=== PATIENT | female | born 1960 | race Caucasian/White ===

== ENCOUNTER 2021-09-01 08:00 | Outpatient (CLI) | payer OTHER ==
[2021-09-04 13:05] LABS: HSV 1 DNA NOT DETECTED; HSV 2 DNA NOT DETECTED; SOURCE SWAB
== END 2021-09-01 23:59 ==
LOC: LAB.N 08:00
PROVIDERS: ATTEND Nurse Practitioner
DX: B00.2 Herpesviral gingivostomatitis and pharyngotonsillitis (principal)
CPT/HCPCS: 87070; 87529

== ENCOUNTER 2024-03-08 09:38 | Outpatient (CLI) | payer OTHER ==
--- NOTE | 2024-03-08 10:16 | Sleep Patient Instructions ---
Sleep Center Visit Summary - Patient Visit Information Reason for Visit: Initial consult for evaluation of sleep disordered breathing and other sleep issues. - Patient Instructions Instructions Attached: Sleep Study Home Monitor Additional Instructions: You will be completing a sleep study, either an in-lab polysomnography (PSG) or home sleep study (HST). You will follow-up in the sleep care office after the sleep study is completed to hear the results and talk about therapy, if needed. You will be called by our office staff to schedule this appointment, but you may contact us with any questions. - Clinic Information Contact: [facility] [address] [place] [address] [email or web address] T: [phone]
--- NOTE | 2024-03-08 10:19 | SLEEP CARE CONSULTATION ---
Information from patient questionnaire entered by Marcelo Moreno. I have reviewed and concur with the information entered by Marcelo Moreno. This document represents the service I personally performed and the decisions made by me, Felisa Lei ARNP. History of Present Illness Service Date and Time: 03/08/2024 0938 Reason for Visit: New patient Chief Complaint: reports: Insomnia, Snoring, Observed pauses in breathing, Fatigue, Frequent awakenings at night Date of Onset: , POSSIBLY back to 2014 Usual bedtime: 2300 Time it takes to fall asleep: DEPENDS ON THE NIGHT SOMETIMES FALL ASLEEP 0200 Snores at night: Yes Observed to quit breathing while asleep: Yes Number of times waking at night: 3-4 Reasons for waking at night: reports: Gasping for air, Pain, Bathroom, Other (NOISE) Toss, Turn, or Twitch while sleeping: Yes Recalls having dreams: No (rare, twice a year) Usually gets out of bed at: 0630; weekends 0700 Feels refreshed in the morning: Yes Morning headache: No Sleepy or fatigued during the day: Yes Ever fallen asleep while driving: No Takes day naps: No Prior sleep studies: Yes Additional HPI information: I had the pleasure of seeing DIANA ARGUETA today regarding the possibility of her having a sleep disorder. Her current complaints are insomnia, snoring, observed pauses in breathing, fatigue and frequent night awakenings. She says she sometimes wakes up feeling like she can't breathe, gasping for air. She sometimes has insomnia. She says she was talking to her PCP and discussed sleep, thinking it could be related. She says she lives alone but her grandson has told her that she snores. She says a couple of years ago she was sent a monitor that said she stopped breathing a "crazy" amount of time and offered a CPAP. A second opinion told her that her episodes were mainly on her back and she tried positional therapy for about a month with some mild improvement. She really does not want to try a CPAP but would like to start feeling better and would like to explore her options. - Parasomnia Symptoms Ever been unable to move upon waking from sleep: Yes (only as a child) Walks in sleep: No Talks in sleep: No (sleeps alone) Ever acted out dreams in sleep: No Ever felt weak in the knees when startled or emotional: No Bothered by creepy, crawly, restless sensations in legs: Yes (couple, three times a year) Problems with memory or concentration: Yes (memory mostly; don't have memory of childhood) Subjective Initial [place] Sleepiness Scale score: 5 (01/30/24) Past Medical History Past Medical History: reports: Diabetes (pre-diabetic, new), Anemia (iron-def anemia in 2020, resolved) Social History 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 Patient is Single and lives in . Have you smoked in the past 12 months: No Alcohol use: Yes Alcohol amount and frequency: 1-2 EVERY COUPLE WEEKS SOMETIMES LESS FREQUENT Caffeine use: Yes Caffeine amount and frequency: 2 CUPS EVERY MORNING; stopping during new medications Family History Family history of sleep disordered breathing: No Allergies and Home Medications Known drug allergies: Yes (SULFA) Drug allergies reviewed: Yes Home medication list reviewed: Yes (as listed) Allergy and home medication list: Allergies Sulfa (Sulfonamide Antibiotics) Allergy (Verified 03/08/24 09:39) Home Medications Cholecalciferol (Vitamin D3) [Vitamin D3] See Rx Instructions .ROUTE .COMPLEX 03/08/24 [History] Ferrous Sulfate See Rx Instructions .ROUTE .COMPLEX 03/08/24 [History] [place]-3/Dha/Epa/Fish Oil [Fish Oil 1,000 mg Softgel] See Rx Instructions .ROUTE .COMPLEX 03/08/24 [History] Phentermine HCl See Rx Instructions .ROUTE .COMPLEX 03/08/24 [History] glucosamine HCL [Glucosamine HCl] See Rx Instructions .ROUTE .COMPLEX 03/08/24 [History] Review of Systems Weight gain over past 5 years: 40 Cardiovascular: denies: high blood pressure Respiratory: denies: shortness of breath Gastrointestinal: denies: heartburn Neurological: denies: headaches, head trauma Psychiatric: denies: anxiety, depression Ear/Nose/Throat: reports: nasal congestion, dry mouth/throat, tonsillectomy, wisdom teeth removed. denies: injury to nose Endocrine: reports: sluggishness. denies: thyroid disease Musculoskeletal: reports: back pain Immunologic: reports: sneezing, allergies to food or environment Physical Exam Vital signs obtained and entered by: MARCELO Swenson MA Blood Pressure: 126/91 (RIGHT ARM) Cuff size: regular Heart Rate: 74 O2 Saturation: 98 Height: 5 ft 3 in Weight: 177 lb Body Mass Index: 31.3 BMI Classification: Obese Neck circumference: 14 Nostrils: patent to airflow Mouth and throat: narrow oropharynx Soft palate: long Hard palate: normal Uvula: normal Uvula visualization: 25% Mallampati Class III Tongue: enlarged in size with teeth robins on lateral edges Tonsils: absent bilaterally Neck: normal w/o lymphadenopathy or thyromegaly Heart: regular rate and rhythm Lungs: clear bilaterally Impression and Plan 1. Suspected Obstructive Sleep Apnea-Hypopnea Syndrome, as suggested by a history of irregular snoring, observed cessation of breath while asleep, gasping or choking in sleep, frequent awakening during the night and cognitive impairment. Narrow oropharynx and obesity are common predisposing factors for obstructive sleep apnea-hypopnea syndrome. I recommend proceeding to polysomnography to confirm the diagnosis and to assess severity. If the patient has significant sleep disordered breathing, a manual CPAP titration study will also be performed to find the optimal treatment pressure. I informed the patient of what the sleep studies involve and after some discussion, obtained agreement to proceed. The pathophysiology of obstructive sleep apnea-hypopnea syndrome was discussed with the patient and health risks of cardiovascular and cerebrovascular disease if not treated. Risks of drowsy driving discussed in detail and patient advised to avoid long distance driving and to trap puller at the first sign of drowsiness. Patient agreed to plan. * Schedule polysomnography. * Avoid long distance driving or driving when feeling sleepy. * Avoid alcohol, sedative and muscle relaxant around bedtime. * Attempt to lose weight. * Review instructions provided by trained office staff on how to prepare for the sleep study. * Return for follow-up after sleep study completed. Counseling Topics: Weight loss health impact Plan: PSG/HST Visit Type: In Office Time Spent with Patient (minutes): 31 Provider Statement: I spent 100% of the Face to Face Visit with the patient with greater than 50% spent counseling the patient and coordination of care.
[2024-03-08 10:27] VITALS: BP 126/91; O2SAT 98
== END 2024-03-08 09:39 | disposition home or self-care (01) ==
LOC: SC 09:38
PROVIDERS: ATTEND Nurse Practitioner Family
DX: R06.83 Snoring (principal); R06.81 Apnea, not elsewhere classified; R41.89 Other symptoms and signs involving cognitive functions and awareness; G47.8 Other sleep disorders; G47.00 Insomnia, unspecified; R53.83 Other fatigue
CPT/HCPCS: 99203; 99212

== ENCOUNTER 2024-04-10 08:26 | Outpatient (CLI) | payer OTHER | END 2024-04-10 08:27 | disposition home or self-care (01) | LOC: SC 08:26 | PROVIDERS: ATTEND Nurse Practitioner Family | DX: G47.8 Other sleep disorders (principal); R06.83 Snoring; R06.81 Apnea, not elsewhere classified; E66.9 Obesity, unspecified; Z68.31 Body mass index [BMI] 31.0-31.9, adult; R09.02 Hypoxemia | CPT/HCPCS: 95806 ==

== ENCOUNTER 2024-05-05 09:33 | Outpatient (CLI) | payer OTHER ==
--- NOTE | 2024-05-05 09:57 | Sleep Patient Instructions ---
Sleep Center Visit Summary - Patient Visit Information Reason for Visit: Sleep study follow-up - Patient Instructions Instructions Attached: Snoring Tips Prevent Additional Instructions: Your sleep study today was negative for significant sleep disordered breathing. However, you did have elevated respiratory episodes when sleeping on your back. You should avoid sleeping on your back to control these respiratory episodes. You were found to have episodes of snoring. There are different ways to control snoring including weight loss, oral devices made by a dentist or surgical options through ENT specialist. You should not use oral devices that do not fit properly because they can affect your bite. You should also check insurance coverage of oral devices for snoring because they may not be cover well. You may obtain a referral to an ENT specialist through your primary provider. Follow-up as needed. - Clinic Information Contact: [facility] [address] [place] [address] [email or web address] T: [phone]
--- NOTE | 2024-05-05 10:00 | SLEEP CARE CONSULTATION ---
Information from patient questionnaire entered by Scarlett Moreno. I have reviewed and concur with the information entered by Scarlett Moreno. This document represents the service I personally performed and the decisions made by , Felisa Lei ARNP. History of Present Illness Service Date and Time: 05/05/2024 0933 Initial [place] Sleepiness Scale score: 5 (01/30/24) Current [place] Sleepiness Scale score: 4 (05/05/24) Additional HPI information: DIANA ARGUETA returns for follow up and results of the recently performed home sleep study. The patient was informed of the following findings: No significant sleep disordered breathing with an average AHI of 4.9 and man oxygen saturation of 81%. I explained the pathophysiology behind obstructive sleep apnea. Patient does not have sleep apnea and was advised how weight gain could increase the risk of developing sleep apnea in the future. I strongly encouraged the patient to lose weight. Patient does not have significant sleep disordered breathing but has minimal elevated AHI in supine position so advised positional therapy. Patient has moderate snoring. Snoring can be reduced by weight loss. Weight loss is best achieved with diet consult. Patient instructed to contact PCP for referral. Snoring can also be treated with an oral appliance from a dentist. Advised to check insurance coverage. In addition, an ENT evaluation can be do to see if other treatment is indicated. Patient counseled not drink alcohol less than 4 hours before bedtime as it can increase snoring and apnea. Patient was cautioned about risks of drowsy driving until sleepiness symptoms resolve. Abbey ent denies drowsy driving. Sleep Study - Results Type of Sleep Study: Home sleep study (COMPLETED 04/10/24) Prior sleep studies: Yes Polysomnography/Home Sleep Study results: Physician Impression: The quality of the study is good. The length of the study is adequate (> 240 minutes). Please also see the tabulated and graphic data. 1. No significant sleep disordered breathing, with an AHI of 4.9/hr and man SaO2 of 81%. During the study, the patient had 12 apneas (12 obstructive, 0 central, 0 mixed) and 24 hypopneas. The longest episode lasted 100.0 seconds. The respiratory events occurred independently of sleep stage and body position (supine AHI was 5.1 and non-supine, 4.93). 2. Hypoxemia (ICD-10 R09.02), mild, with the lowest oxygen saturation of 81 % and 2.2 minutes with SaO2 under 90%. Baseline oxygen saturation was normal (Average oxygen saturation was 94%). Allergies and Home Medications Known drug allergies: Yes (as listed) Drug allergies reviewed: Yes Home medication list reviewed: Yes (phentermine) Allergy and home medication list: Allergies Sulfa (Sulfonamide Antibiotics) Allergy (Verified 03/08/24 09:39) Review of Systems Review of systems same as previous: Yes (NO CHANGE) Physical Exam Vital signs obtained and entered by: SCARLETT Swenson MA Blood Pressure: 128/82 (RIGHT ARM) Cuff size: regular Heart Rate: 86 O2 Saturation: 99 Height: 5 ft 3 in Weight: 176 lb 6.4 oz Body Mass Index: 31.2 BMI Classification: Obese Impression and Plan 1. Snoring. Patient returns to the office after completing a home study which shows borderline results with her average AHI of 4.9. Her supine AHI was 5.1. Her study is showing snoring but no significant sleep disordered breathing. However, it is minimally elevated when sleeping supine. Because of her borderline results, I advised her that repeating the study in the sleep lab is recommended for more accurate evaluation. She declined at this time and is trying to lose weight to reduce AILYN risk. Patient advised that often weight loss will reduce snoring as well as apnea risk. An oral appliance can also be used for snoring. This would require a dental consultation. Patient cautioned not to use other online appliances as can cause bite issues. A list of accredited dentists in area and one local dentist who makes oral appliances given. Patient is advised to check if insurance will cover. An ENT consult can also be helpful to determine if any other treatment is an option. 2. Hypoxemia, mild, with a man oxygen saturation of 81% and 2.2 minutes spent under 90%. The baseline oxygen saturation was normal with an average oxygen saturation of 94%. 3. Obesity, unspecified. Currently patients BMI is 31.2. Obesity increases the risk of apnea, CPAP pressure requirements and overall health risks especially cardiovascular and diabetes. Thus patient is advised to lose weight. * Continue to try to lose weight * Avoid alcohol consumption near bedtime * Return as needed for follow up. Counseling Topics: Sleeping position, Weight loss health impact Follow up with Sleep Care in: as needed Visit Type: In Office Time Spent with Patient (minutes): 20 Provider Statement: I spent 100% of the Face to Face Visit with the patient with greater than 50% spent counseling the patient and coordination of care.
[2024-05-05 10:02] VITALS: BP 128/82; O2SAT 99
== END 2024-05-05 09:34 | disposition home or self-care (01) ==
LOC: SC 09:33
PROVIDERS: ATTEND Nurse Practitioner Family
DX: R06.83 Snoring (principal); R09.02 Hypoxemia; E66.9 Obesity, unspecified; Z68.31 Body mass index [BMI] 31.0-31.9, adult
CPT/HCPCS: 99212; 99213

== ENCOUNTER 2024-06-27 08:22 | Outpatient (CLI) | payer OTHER ==
--- NOTE | 2024-06-30 10:54 | Mammography Report ---
BILATERAL DIGITAL SCREENING MAMMOGRAM 3D/2D: 06/27/2024 CLINICAL: Routine screening. Family history of breast cancer. Priors: 12/11/2021, 05/15/2019, 04/27/2019, 03/09/2017 There are scattered areas of fibroglandular density in both breasts (category b / 25%-50% glandular t issue). No significant masses, calcifications, or other findings are seen in either breast. IMPRESSION: NEGATIVE There is no mammographic evidence of malignancy. A 1 year screening mammogram is recommended. Based on the Tyrer Cuzick model (a risk assessment model) the patient's lifetime risk is 14.3% and he r 10 year risk is 6.4%. According to the ACR, ACS, and NCCN guidelines, an annual breast MRI exam elena ng with mammogram is recommended if the patient's lifetime risk is 20% or greater. This exam was interpreted at Station ID: [id number]. NOTE: For mammograms, a report in lay terms will be sent to the patient. Approximately 15% of breast malignancies will not be visualized mammographically. In the management of a palpable breast mass, a negative mammogram must not discourage biopsy of a clinically suspicious lesion. Electronically Signed By: Kennedy Clinton M.D. aty/:06/29/2024 18:23:15 letter sent: No_Letter ACR BI-RADS Category 1: Negative [id number] PARENCHYMAL PATTERN: (A) - The breast(s) demonstrate(s) scattered fibroglandular densities. BI-RADS CATEGORY: (1) - 1 RECOMMENDATION: (ANNUAL) - Recommend routine annual screening mammography. [id number] 1 year screening LATERALITY: (B)
== END 2024-06-27 08:23 | disposition home or self-care (01) ==
LOC: DI.N 08:22
DX: Z12.31 Encounter for screening mammogram for malignant neoplasm of breast (principal); Z80.3 Family history of malignant neoplasm of breast; R92.323 Mammographic fibroglandular density, bilateral breasts